=== PATIENT | male | born 1955 | race Caucasian/White ===

== ENCOUNTER 2022-12-08 11:41 | Emergency (ER) | payer OTHER, MEDICARE ==
[~2022-12-08] VITALS: Ht 170.2 cm; Wt 72.7 kg
[2022-12-08 12:12] LABS: CLARITY,URINE CLEAR (Clear); COLOR,URINE YELLOW (Yellow); GLUCOSE, URINE >=1000 mg/dl (Neg); KETONES,URINE TRACE mg/dl (Neg); LEUKOCYTE ESTERASE ,URINE NEGATIVE (Neg); NITRITES, URINE NEGATIVE (Neg); OCCULT BLOOD,URINE NEGATIVE (Neg); PROTEIN,URINE TRACE mg/dl (Neg)
[2022-12-08 12:17] LABS: BACTERIA,URINE NONE SEEN /HPF (Neg); MUCUS STRANDS NONE SEEN /LPF (Neg); RBC,URINE 0 /HPF (0-2); SQUAMOUS EPITHELIAL CELL,UR FEW /LPF (FEW); UA COLLECTION TYPE CLN CATCH MIDSTREAM; WBC,URINE 0-4 /HPF (0-4)
[2022-12-08 12:33] LABS: BASOPHILS % (AUTO) 0.4 % (0-1); EOSINOPHILS % (AUTO) 0.9 % (0-6); HEMATOCRIT 45.9 % (42.0-52.0); HEMOGLOBIN 15.8 g/dl (14.0-17.9); LYMPHOCYTES # (AUTO) 0.8 X10'3 (1.1-4.8); LYMPHOCYTES % (AUTO) 25.7 % (21-51); MEAN CORPUSCULAR HEMOGLOBIN 26.9 PG (27.0-31.0); MEAN CORPUSCULAR HGB CONC 34.4 g/dL (33.0-36.5); MEAN CORPUSCULAR VOLUME 78.2 FL (78-98); MONOCYTES # (AUTO) 0.2 X10'3 (0-0.9); MONOCYTES % (AUTO) 6.3 % (2-12); NEUTROPHILS % (AUTO) 66.7 % (42-75); PLATELET COUNT 68 X10'3 (140-440); RED BLOOD COUNT 5.86 X10'6 (4.70-6.10); RED CELL DISTRIBUTION WIDTH 15.3 % (11.5-14.5)
[2022-12-08 12:52] LABS: ANISOCYTOSIS 1+; MICROCYTOSIS 1+; PLATELET ESTIMATE DECREASED; TOTAL CELLS COUNTED 100
[2022-12-08 12:56] LABS: ALANINE AMINOTRANSFERASE 82 U/L (12-78); ALBUMIN 4.4 G/DL (3.4-5.0); ALBUMIN/GLOBULIN RATIO 1.3 (1.1-1.5); ALKALINE PHOSPHATASE 123 IU/L (46-116); ANION GAP 10 (8-16); ASPARTATE AMINO TRANSFERASE 58 U/L (10-37); BILIRUBIN,TOTAL 1.7 MG/DL (0.1-1.0); BLOOD UREA NITROGEN 10 MG/DL (7-18); BUN/CREATININE RATIO 9.6 (10.0-20.0); CALCIUM 9.3 MG/DL (8.5-10.1); CHLORIDE 95 MMOL/L (99-107); CREATININE 1.04 MG/DL (0.60-1.10); GLUCOSE 316 MG/DL (70-104); LIPASE 130 U/L (73-393); POTASSIUM 4.1 MMOL/L (3.5-5.1); SODIUM 131 MMOL/L (135-145); TOTAL CARBON DIOXIDE 26.4 MMOL/L (24-32); TOTAL PROTEIN 7.8 G/DL (6.4-8.2); eGFR 71 ML/MIN
[2022-12-08 18:00] VITALS: BP 115/64
--- NOTE | 2022-12-08 19:05 | NUR ---
PATIENT WAS FOUND ON THE FLOOR IN PATIENT BATHROOM. STATES HE FELL AGAINST THE WALL WHEN LEAVING THE BATHROOM AND STRUCK HIS LEFT FOREHEAD, SUSTAINING SMALL CUT WITH MINIMAL BLEEDING. PATIENT DENIES LOSS OF CONSCIOUSNESS. DESCRIBES MILD PAIN TO FOREHEAD. DR. BARRERA INFORMED OF INCIDENT. PATIENT ASSESSED AND FOREHEAD CLEANSED WITH WET WASHCLOTH. ALERT AND ANSWERS QUESTIONS APPROPRIATELY.
== END 2022-12-08 20:19 | disposition home or self-care (01) ==
LOC: ER 11:42
DX: K29.70 Gastritis, unspecified, without bleeding (principal)
CPT/HCPCS: 36415; 70450; 74176; 80053; 81001; 83690; 85007; 85025; 99285